=== PATIENT | male | born 1950 | race American Indian/Alaskan Native ===

== ENCOUNTER 2017-01-04 08:59 | Emergency (ER) | payer MEDICARE ==
[2017-01-04 08:59] VITALS: BMI 22.5
[2017-01-04 09:26] VITALS: BP 116/85; PULSE 72; RESP 18; TEMP 97.8; O2SAT 96
--- NOTE | 2017-01-04 09:43 | C.PDOC ---
History Of Present Illness 66 y/o male presents to ED with c/o right hand, left foot, and right rib pain for several months. Patient states pain is chronic, and notes he regularly takes "blue pill that's liquid, 500mg". Denies any falls or injuries, chest pain , SOB, fever. Time Seen by Provider: 01/04/17 09:24 Chief Complaint (Nursing): Pain, Chronic History Per: Patient History/Exam Limitations: no limitations Onset/Duration Of Symptoms: Persistent Current Symptoms Are (Timing): Still Present Recent travel outside of the [place]: No Past Medical History Reviewed: Historical Data, Nursing Documentation, Vital Signs Vital Signs: Last Vital Signs Temp 97.8 F 01/04/17 09:11 Pulse 72 01/04/17 09:11 Resp 18 01/04/17 09:11 BP 116/85 01/04/17 09:11 Pulse Ox 96 01/04/17 10:06 - Medical History PMH: Schizophrenia Family History: States: Unknown Family Hx - Social History Hx Alcohol Use: Yes Hx Substance Use: Yes (cocaine) - Immunization History Hx Tetanus Toxoid Vaccination: No Hx Influenza Vaccination: No Hx Pneumococcal Vaccination: No Review Of Systems Except As Marked, All Systems Reviewed And Found Negative. Constitutional: Negative for: Fever Musculoskeletal: Positive for: Hand Pain, Foot Pain, Other (right rib pain). Negative for: Neck Pain, Back Pain Skin: Negative for: Rash Neurological: Negative for: Weakness, Numbness Physical Exam - Physical Exam Appears: Non-toxic, No Acute Distress Skin: Normal Color, Warm, Dry Head: Atraumatic, Normacephalic Neck: No Midline Cervical Tenderness, No Paracervical Tenderness, Supple Chest: Symmetrical, Tenderness (mild right rib) Cardiovascular: Rhythm Regular Respiratory: Normal Breath Sounds, No Rales, No Rhonchi, No Wheezing Gastrointestinal/Abdominal: Soft, No Tenderness, No Guarding, No Rebound Back: Normal Inspection, No Vertebral Tenderness Extremity: Normal ROM, Tenderness (mild right hand, mild left foot), Capillary Refill (< 2 sec. ), No Deformity, No Swelling Extremity: Bilateral: Normal Color And Temperature Pulses: Left Radial: Normal, Right Radial: Normal Neurological/Psych: Oriented x3, Normal Speech, Normal Cognition, Normal Motor, Normal Sensation ED Course And Treatment O2 Sat by Pulse Oximetry: 96 (RA) Pulse Ox Interpretation: Normal Progress Note: Treated with Toradol. On reassessment, patient reports improvement of pain, is ambulatory, and in no acute distress. Advised follow up with clinic/PMD. Disposition Counseled Patient/Family Regarding: Diagnosis, Need For Followup, Rx Given - Disposition Referrals: [facility] [Outside] Disposition: HOME/ ROUTINE Disposition Time: 09:50 Condition: STABLE Additional Instructions: FOLLOW UP IN MEDICAL CLINIC IN 1-2 DAYS USE MEDICATION NEEDED RETURN TO EMERGENCY ROOM IF SYMPTOMS WORSEN Prescriptions: Naproxen [Naprosyn Tab] 375 mg PO BID PRN #25 tab PRN Reason: pain Instructions: Chronic Pain (ED) Print Language: GAMBIAN - POA Present On Arrival: None - Clinical Impression Clinical Impression: Chronic pain - Scribe Statement The provider has reviewed the documentation as recorded by the Sterlingibisela Ross All medical record entries made by the Myron were at my direction and personally dictated by me. I have reviewed the chart and agree that the record accurately reflects my personal performance of the history, physical exam, medical decision making, and the department course for this patient. I have also personally directed, reviewed, and agree with the discharge instructions and disposition.
== END 2017-01-04 09:57 | disposition home or self-care (01) ==
LOC: C.ER 08:59
DX: G89.29 Other chronic pain (principal); R07.81 Pleurodynia
CPT/HCPCS: 96372; 99285; J1885

== ENCOUNTER 2017-04-05 09:41 | Emergency (ER) | payer MEDICARE ==
[2017-04-05 09:48] VITALS: RESP 18
[2017-04-05 09:49] VITALS: BMI 21.9
[2017-04-05] MEDS ORDERED: Naproxen 550 mg Tab PO STA (09:55)
[2017-04-05] MEDS ORDERED: Naproxen 550 mg Tab PO ONE (10:02)
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
[2017-04-05 11:15] VITALS: BP 132/75; PULSE 82; TEMP 98.2
[2017-04-05 11:53] VITALS: O2SAT 96
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
== END 2017-04-05 11:16 | disposition home or self-care (01) ==
LOC: SUPCPDRO 09:41 → C.ER 09:41
DX: S20.212A Contusion of left front wall of thorax, initial encounter (principal); Y00.XXXA Assault by blunt object, initial encounter